=== PATIENT | female | born 1980 | race Caucasian/White ===

== ENCOUNTER 2018-02-18 12:46 | Emergency (ER) | payer BC ==
[~2018-02-18] VITALS: Ht 170.2 cm; Wt 61.3 kg
[2018-02-18 12:47] VITALS: BP 138/88
[2018-02-18] MEDS ORDERED: DIPH,PERTUSS(ACELL),TET VAC/PF 0.5 ML IM-VACC ONE ×2 (14:00→14:03)
[2018-02-18] MEDS ORDERED: LIDOCAINE-MPF 1%, 5ML INFIL ONE (14:00)
[2018-02-18] MEDS ORDERED: AMOXICILLIN/CLAV 875-125MG TABLET PO SCH (14:00)
[2018-02-18] MEDS ORDERED: LIDOCAINE-MPF 1%, 5ML ONE (14:03)
[2018-02-18] MEDS ORDERED: AMOXICILLIN/CLAV 875-125MG TABLET ONE (14:06)
[2018-02-18] MEDS ORDERED: BACITRACIN ZINC OINT 500U/GM, 0.9 GM ONE (14:54)
== END 2018-02-18 15:13 | disposition home or self-care (01) ==
LOC: ED 15:03
DX: S01.81XA Laceration without foreign body of other part of head, initial encounter (principal); S90.31XA Contusion of right foot, initial encounter; S01.85XA Open bite of other part of head, initial encounter; I10 Essential (primary) hypertension; W01.0XXA Fall on same level from slipping, tripping and stumbling without subsequent striking against object, initial encounter; Y93.89 Activity, other specified; Y92.59 Other trade areas as the place of occurrence of the external cause; Y99.8 Other external cause status
CPT/HCPCS: 13132; 90471; 90715